=== PATIENT | male | born 2000 | race Caucasian/White ===

== ENCOUNTER 2020-11-04 09:11 | Outpatient (CLI) | payer OTHER ==
[~2020-11-04 09:11] MED LIST: CYCLOBENZAPRINE5 MG PO; IBUPROFEN400 MG PO
== END 2020-11-04 10:40 | disposition home or self-care (01) ==
LOC: OFIC 805 09:11
PROVIDERS: ATTEND Otolaryngology Otology & Neurotology
DX: H92.01 Otalgia, right ear (principal); H93.8X1 Other specified disorders of right ear; H61.23 Impacted cerumen, bilateral

== ENCOUNTER 2021-12-17 06:30 | Outpatient (CLI) | payer OTHER | END 2021-12-17 06:31 | disposition home or self-care (01) | LOC: LAB 06:30 | PROVIDERS: ATTEND General Practice | DX: E78.5 Hyperlipidemia, unspecified (principal); E03.9 Hypothyroidism, unspecified; D64.9 Anemia, unspecified ==